=== PATIENT | male | born 1970 | race Caucasian/White ===

== ENCOUNTER 2017-04-18 08:28 | Day surgery (SDC) | payer OTHER ==
[~2017-04-18] VITALS: Ht 165.1 cm; Wt 59.2 kg
[2017-04-18] VITALS (17 sets, daily range): BP systolic 103–117; BP diastolic 49–62; PULSE 66–88; RESP 12–32; Ht 165.1 cm; Wt 59.2 kg
[~2017-04-18 08:28] MED LIST: CEFAZOLIN 1 GM INJ ONE
[2017-04-18] MEDS ORDERED: SOD CHLORIDE 0.9% 1,000 ML IV SCH (08:30)
[2017-04-18] MEDS ORDERED: CEFAZOLIN 1 GM/50 ML (PMX) 50 ML IVPB ONE (08:30)
[2017-04-18] MEDS ORDERED: ONDANSETRON 4 MG INJ IV PRN (10:00)
[2017-04-18] MEDS ORDERED: HYDROmorphONE (0.2 MG/ML) 10ML SYG IV PRN ×2 (10:00)
[2017-04-18] MEDS ORDERED: FENTAnyl 50 MCG/ML VIAL IV PRN ×2 (10:00)
[2017-04-18 10:01] LABS: BASOPHILS % 0.4 % (0.0-2.0); EOSINOPHILS # 0.1 10^3/ul (0.0-0.5); EOSINOPHILS % 1.2 % (0.0-7.0); HEMATOCRIT 44.2 % (42.0-52.0); HEMOGLOBIN 15.7 g/dl (14.0-18.0); LYMPHOCYTES # 2.3 10^3/ul (0.8-2.9); LYMPHOCYTES % 23.1 % (15.0-51.0); MEAN CORPUSCULAR HEMOGLOBIN 30.9 pg (29.0-33.0); MEAN CORPUSCULAR HGB CONC 35.5 g/dl (32.0-37.0); MEAN PLATELET VOLUME 11.5 fl (7.4-10.4); MONOCYTE # 0.7 10^3/ul (0.3-0.9); NEUTROPHIL # 6.8 10^3/ul (1.6-7.5); PLATELET COUNT 173 10^3/UL (140-415); RED BLOOD COUNT 5.08 10^6/ul (4.70-6.10); RED CELL DISTRIBUTION WIDTH 12.5 % (11.5-14.5)
[2017-04-18 10:18] LABS: INR 0.97; PROTIME 12.9 Sec (12.2-14.2)
[2017-04-18 10:20] LABS: ALBUMIN 4.5 g/dl (3.3-4.9); ALBUMIN/GLOBULIN RATIO 1.32; BILIRUBIN,INDIRECT 0.3 mg/dl (0-1.1); BILIRUBIN,TOTAL 0.3 mg/dl (0.2-1.3); TOTAL PROTEIN 7.9 g/dl (6.1-8.1)
[2017-04-18 10:21] LABS: CALCIUM 9.2 mg/dl (8.4-10.2); CREATININE 0.73 mg/dl (0.61-1.24); POTASSIUM 4.1 mmol/L (3.5-5.1)
[2017-04-18] MEDS ORDERED: ONDANSETRON 4 MG INJ ONE (10:34)
[2017-04-18] MEDS ORDERED: DEXAMETHASONE 4 MG/ML 1 ML INJ ONE (10:34)
[2017-04-18] MEDS ORDERED: MIDAZOLAM 1 MG/ML 2 ML INJ ONE (10:34)
[2017-04-18] MEDS ORDERED: PROPOFOL 20 ML ONE (10:34)
[2017-04-18] MEDS ORDERED: SUCCINYLCHOLINE CHLORIDE 100 MG/5 ML SYG IV ONE (10:34)
[2017-04-18] MEDS ORDERED: FENTAnyl 50 MCG/ML VIAL ONE (10:34)
[2017-04-18] MEDS ORDERED: LIDOCAINE 2% (SDV) 5 ML INJ ONE (11:17)
[2017-04-18] MEDS ORDERED: BUPIVACAINE 0.5%/EPI (SDV) 30 ML INJ ONE (11:36)
[2017-04-18] MEDS ORDERED: MEPERIDINE 25 MG INJ ONE (11:59)
--- NOTE | 2017-04-18 12:01 | SIPON ---
Date/Time of Note Date/Time of Note DATE: 04/18/17 TIME: 12:00 Operative Report Preoperative Diagnosis Right lumbar mass Postoperative Diagnosis Same Operation/Procedure Performed Resection of intramuscular right lumbar mass probable lipoma Surgeon see signature line registrar assistant Dr Frederick Anesthesia: general Estimated blood loss: 0 - 10 ml's Transfusion Required none Specimen Right lumbar mass Grafts/Implants none Complications none JONATAN BROWN MD Apr 18, 2017 12:01
--- NOTE | 2017-04-18 12:12 | OPR ---
DATE OF OPERATION: 04/18/2017 PREOPERATIVE DIAGNOSIS: Right lumbar mass. POSTOPERATIVE DIAGNOSIS: Right lumbar intramuscular lipoma. ANESTHESIA: General. ANESTHESIOLOGIST: Nurse orthopaedic technologist Dr. Cassi Hussein. SURGEON: Magdiel Munoz MD PAIN MANAGEMENT PHYSICIAN: Dr. Frederick. INDICATIONS FOR PROCEDURE: The patient is a 47-year-old male who presented with an enlarging mass j ust to the right of midline between the L1 and L3 locations. He was counseled as to the benefit of the resection. He consented and was scheduled for surgery. DESCRIPTION OF PROCEDURE: The patient was brought to the operating theater, placed in the lateral p osition with the right side up. The lumbar region was prepped and draped in usual sterile fashion. Approximately 4 cm incision was made directly over the palpable mass. Subcutaneous tissue was diss ected with cautery. In the subcutaneous space, there was fatty tissue that was not definitely assoc iated with the circumscribed mass. This tissue was removed and sent for pathologic analysis; chelly chakraborty, upon removing with further inspection, there is a bulge within the musculature of the lumbar salima on. The muscle fibers were split and a well-circumscribed described mass was meticulously dissected consistent with probable intramuscular lipoma, rule out other. The mass was removed and sent for p ermanent pathologic analysis. The wound was irrigated. Minimal bleeding was controlled with cauter y. The area was then infiltrated with 0.5% Marcaine local anesthetic with epinephrine, and the adrienne l irrigation and inspection took place. Minimal residual bleeding was controlled with cautery. Ski n was then reapproximated with 2-0 nylon sutures in vertical mattress fashion and a sterile dressing was applied. Patient tolerated procedure well. Total blood loss was approximately 10 mL. There w ere no complications and the patient was transported in stable condition to the recovery room. Dictated By: MAGDIEL WHIPPLE/LUCY Conf#: [id number] DID#: [id number]
[2017-04-18] MEDS ORDERED: MEPERIDINE 25 MG INJ IV PRN ×2 (12:30)
[2017-04-19] MEDS ORDERED: INFLUENZA VIRUS VACCINE 0.5 ML SYG IM* ONE (09:00)
== END 2017-04-18 14:15 | disposition home or self-care (01) ==
LOC: SDS 08:28
PROVIDERS: ATTEND Surgery Surgical Oncology
DX: D17.1 Benign lipomatous neoplasm of skin and subcutaneous tissue of trunk (principal)
CPT/HCPCS: 21932; 80053; 85025; 85610; 85730; 88304; 88307; J0690; J1100; J2175; J2250; J2405; J3010; Z7512; Z7610

== ENCOUNTER 2017-04-21 02:04 | Emergency (ER) | payer OTHER ==
[~2017-04-21] VITALS: Ht 162.6 cm; Wt 59.5 kg
[2017-04-21 02:11] VITALS: Ht 162.6 cm; Wt 59.5 kg
[2017-04-21] MEDS ORDERED: MECLIZINE 12.5 MG TAB PO ONE (03:00)
[2017-04-21] MEDS ORDERED: LORAZEPAM 1 MG TAB PO ONE (03:00)
[2017-04-21] MEDS ORDERED: LORA1TAB PO (04:37)
--- NOTE | 2017-04-21 04:40 | ERD ---
ER Documentation Chief Complaint Date/Time DATE: 04/21/17 TIME: 04:37 Chief Complaint PT IN WITH C/O "DIZZINESS X 2 HOURS. IT FEELS LIKE I'M MOVING" HPI Patient is a 47-year-old otherwise healthy male who states that he feels very stressed out and has been feeling like this for the past 2 hours. He states when he gets up and stands he feels as if he is moving but he does not feel like he is spinning or as the room is spinning. He has no pain including chest pain. He does state he feels short of breath. No cough. No palpitations. No fever. ROS All systems reviewed and are negative except as per history of present illness. 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 No acute distress HEAD: Atraumatic NECK: Supple. No masses. Full range of motion. No meningismus. No midline tenderness. EYES: EOMI. PERRL. THROAT: No tonilar erythema or edema. No exudates. Uvula midline. No kissing tonsils. RESPIRATORY: Clear to auscultation bilaterally. Symmetric chest wall rise. No wheezing or rales. No accessory muscle use. CV: Regular rate and rhythm. No murmurs, rubs, or gallops. ABDOMEN: Soft, non-distended. Nontender. Negative Holland. Negative McBurneys point tenderness. No CVA tenderness bilaterally. No guarding. No rebound. : Deffered. EXTREMITIES: No clubbing or cyanosis. No edema. Moving all extremities normally. BACK: No midline tenderness to palpation. No step-offs. NEUROLOGIC: Normal mental status and speech. Face is symmetric. Moves all extremities equally. Motor and sensory distally intact. Normal coordination. Ambulates with a strong steady gait. Finger to nose within normal limits, chip drier strength 5 out of 5 bilaterally, Romberg and pronator drift negative, rapid alternating movements within normal limits, cranial nerves II through XII intact Results 24 hrs Laboratory Tests Test 04/21/17 03:23 Bedside Glucose 104mg/dL Current Medications Medications (Trade) Dose Ordered Sig/Mark Route PRN Reason Start Time Stop Time Status Last Admin Dose Admin Meclizine HCl (Antivert) 25 mg ONCE ONCE PO 04/21/17 03:00 04/21/17 03:01 DC 04/21/17 03:12 Lorazepam (Ativan) 1 mg ONCE ONCE PO 04/21/17 03:00 04/21/17 03:01 DC 04/21/17 03:13 Procedures/MDM 47-year-old male presents with vague complaints of stress and shortness of breath. He has no chest pain. Patients is alert, oriented, well appearing, and in no distress with normal vital signs. There is no fever, tachycardia, or tachypnea. He was given Ativan with improvement of his symptoms. EKG showed normal sinus rhythm with no evidence of ST elevation or acute ischemic changes. Accu-Chek within normal limits. Chest x-ray also negative. I doubt any emergent etiology for this patient's symptoms and I believe his symptoms are most likely secondary to anxiety and he had good relief of his symptoms with Ativan here and he was discharged with 10 Ativan pills. He was instructed not to work or drive under this medication. Patient counseled regarding my diagnostic impression and care plan. Prior to discharge all questions answered. Pt agrees with treatment plan and understands strict return precautions. Pt is instructed to follow up with primary care provider within 24-48 hours. Precautionary instructions provided including instructions to return to the ER if not improving or for any worsening or changing symptoms or concerns. Departure Diagnosis: Primary Impression: Anxiety Condition: Stable Patient Instructions: Anxiety Reaction Additional Instructions: Llame al doctor MAANA y car [place] MARE PARA DENTRO DE 1-2 BRADY.Dgale a la secretaria que nosotros le instruimos hacer esta mare.Avise o llame si perkins condicin se empeora antes de la mare. Regresa aqui si peor o no mejor. BIANCA MENDOZA PA-C Apr 21, 2017 04:40
--- NOTE | 2017-04-21 14:37 | RADRPT ---
PROCEDURE: XR Chest. CLINICAL INDICATION: Shortness of breath TECHNIQUE: Single frontal view of the chest was obtained COMPARISON: None FINDINGS: No pleural effusion or pneumothorax. No consolidation. Unremarkable cardiomediastinal silhouette. No acute osseous abnormality. IMPRESSION: No acute cardiopulmonary disease. RPTAT: EE Sharri Mosquera Physician Date Time Electronically viewed and signed by Sharri Mosquera Physician on 04/21/2017 14:37 /
== END 2017-04-21 04:46 | disposition home or self-care (01) ==
LOC: FTE 02:04
DX: F41.9 Anxiety disorder, unspecified (principal)
CPT/HCPCS: 71010; 82962; 93005; Z7502; Z7610

== ENCOUNTER 2017-04-28 01:27 | Emergency (ER) | payer OTHER ==
[~2017-04-28] VITALS: Ht 162.6 cm; Wt 59.5 kg
[~2017-04-28 01:27] MED LIST changes: -CEFAZOLIN 1 GM INJ ONE; +LORA1TAB PO
[2017-04-28 01:50] VITALS: Ht 162.6 cm; Wt 59.5 kg
--- NOTE | 2017-04-28 03:38 | RADRPT ---
PROCEDURE: XR Chest. CLINICAL INDICATION: Chest Pain. TECHNIQUE: Portable single view of the chest COMPARISON: None. FINDINGS: The cardiomediastinal silhouette appears within normal limits. The lungs may be slightly hyperinflat ed but no definite acute infiltrate, pleural effusion, or overt congestive heart failure is seen. No bony abnormality is seen. IMPRESSION: Probable mild hyperinflation. RPTAT: HLBE Joann Elena Physician Date Time Electronically viewed and signed by Joann Elena, Physician on 04/28/2017 03:37 LE/
[2017-04-28 05:00] LABS: BASOPHILS % 0.5 % (0.0-2.0); EOSINOPHILS # 0.1 10^3/ul (0.0-0.5); EOSINOPHILS % 1.4 % (0.0-7.0); HEMATOCRIT 39.5 % (42.0-52.0); HEMOGLOBIN 13.5 g/dl (14.0-18.0); LYMPHOCYTES % 24.9 % (15.0-51.0); MEAN CORPUSCULAR HEMOGLOBIN 30.3 pg (29.0-33.0); MEAN CORPUSCULAR HGB CONC 34.2 g/dl (32.0-37.0); MEAN CORPUSCULAR VOLUME 88.8 fl (82.0-101.0); MEAN PLATELET VOLUME 10.8 fl (7.4-10.4); MONOCYTE # 0.6 10^3/ul (0.3-0.9); MONOCYTES % 7.9 % (0.0-11.0); NEUTROPHIL # 5.2 10^3/ul (1.6-7.5); NEUTROPHILS % 64.7 % (39.0-77.0); PLATELET COUNT 201 10^3/UL (140-415); RED BLOOD COUNT 4.45 10^6/ul (4.70-6.10); RED CELL DISTRIBUTION WIDTH 12.6 % (11.5-14.5)
[2017-04-28 05:21] LABS: ALANINE AMINOTRANSFERASE 59 IU/L (13-69); ALBUMIN 4.2 g/dl (3.3-4.9); ALBUMIN/GLOBULIN RATIO 1.55; ALKALINE PHOSPHATASE 113 IU/L (42-121); ANION GAP 15 (8-16); ASPARTATE AMINO TRANSFERASE 31 IU/L (15-46); BILIRUBIN,INDIRECT 0.2 mg/dl (0-1.1); BILIRUBIN,TOTAL 0.2 mg/dl (0.2-1.3); BLOOD UREA NITROGEN 16 mg/dl (7-20); CALCIUM 9.2 mg/dl (8.4-10.2); CARBON DIOXIDE 29 mmol/L (21-31); CHLORIDE 106 mmol/L (97-110); CREATININE 0.82 mg/dl (0.61-1.24); GLUCOSE 100 mg/dl (70-220); POTASSIUM 4.2 mmol/L (3.5-5.1); SODIUM 146 mmol/L (135-144); TOTAL PROTEIN 6.9 g/dl (6.1-8.1)
--- NOTE | 2017-04-28 05:27 | ERD ---
ER Documentation Chief Complaint Chief Complaint chest pain since 8 pm HPI This is a 47-year-old male comes in with chest pain started at 8 PM. Chest pain is right-sided, reproducible with no exacerbating or alleviating factors. No nausea no vomiting no fevers no chills. No other current complaints. Chest pain is mild to moderate intensity on the right side. Reproducible to the touch. Patient's had similar episodes over the past 1-1/2 years. ROS All systems reviewed and are negative except as per history of present illness. 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 Neck: Full range of motion..~ No meningismus. Resp: Clear to auscultation bilaterally Cardio: Regular rate and rhythm, no murmurs Abd: Soft, non tender, non distended. Normal bowel sounds Skin: No petechiae or rashes Back: No midline or flank tenderness Ext: No cyanosis, or edema Neur: Awake and alert Psych: Normal Mood and Affect Result Diagram: 04/28/17 0440 Results 24 hrs Laboratory Tests Test 04/28/17 04:40 White Blood Count 8.010^3/ul Red Blood Count 4.4510^6/ul Hemoglobin 13.5g/dl Hematocrit 39.5% Mean Corpuscular Volume 88.8fl Mean Corpuscular Hemoglobin 30.3pg Mean Corpuscular Hemoglobin Concent 34.2g/dl Red Cell Distribution Width 12.6% Platelet Count 26252^3/UL Mean Platelet Volume 10.8fl Neutrophils % 64.7% Lymphocytes % 24.9% Monocytes % 7.9% Eosinophils % 1.4% Basophils % 0.5% Nucleated Red Blood Cells % 0.0/100WBC Neutrophils # 5.210^3/ul Lymphocytes # 2.010^3/ul Monocytes # 0.610^3/ul Eosinophils # 0.110^3/ul Basophils # 0.010^3/ul Nucleated Red Blood Cells # 0.010^3/ul Procedures/MDM EKG: Rate/Rhythm: [Normal Sinus Rhythm] QRS, ST, T-waves: [No changes consistent w/ acute ischemia] Impression: [No evidence of ischemia or arrhythmia] Chest X-ray 1V Interpreted by me: Soft Tissue: No acute abnormalities Bones: No acute abnormalities Mediastinum/Cardiac Silhouette/Lungs: [No acute abnormalities] Patient's symptoms are concerning for cardiac cause will require inpatient workup and continuous monitoring. Further w/u for ischemia, arrhythmia, PE or dissection will be deferred to the inpatient team. Accepting Care Team: Current data and ongoing care discussed. Time: Time of admission Primary Provider: ipa Consulting: [[employer]] Outstanding Data: none Departure Diagnosis: Primary Impression: Chest pain Chest pain type: unspecified Qualified Code: R07.9 - Chest pain, unspecified type Condition: Stable TAMMIE JAMES Apr 28, 2017 05:27
[2017-04-28 05:32] LABS: B-TYPE NATRIURETIC PEPTIDE 57 PG/ML (0-125)
[2017-04-28 05:34] LABS: TROPONIN-I < 0.012 ng/ml (0.00-0.12)
[2017-04-28 06:00] VITALS: BP 95/46; PULSE 68; RESP 19
== END 2017-04-28 06:21 | disposition home or self-care (01) ==
LOC: E/R 01:27
DX: R07.9 Chest pain, unspecified (principal); R40.2142 Coma scale, eyes open, spontaneous, at arrival to emergency department; R40.2252 Coma scale, best verbal response, oriented, at arrival to emergency department; R40.2362 Coma scale, best motor response, obeys commands, at arrival to emergency department
CPT/HCPCS: 36415; 71010; 80053; 83880; 84484; 85025; 93005; Z7502